=== PATIENT | female | born 1955 | race African-American/Black ===

== ENCOUNTER 2020-03-04 05:06 | Inpatient (IN) | payer OTHER ==
[~2020-03-04] VITALS: Ht 154.9 cm; Wt 90.7 kg
[2020-03-04 06:48] VITALS: BP 150/100
[2020-03-04] MEDS ORDERED: OXYBUTYNIN CHLOR5 MG PO (07:35)
[2020-03-04] MEDS ORDERED: VITAMIN C100 M2 PO (07:35)
[2020-03-04] MEDS ORDERED: LOSARTAN POTASS50 M1 PO (07:35)
[2020-03-04] MEDS ORDERED: THE MEDICINE S400 I1 PO (07:36)
[2020-03-04] MEDS ORDERED: ASPIRIN CHILDRE81 MG PO (07:36)
[2020-03-04 18:00] VITALS: BP 113/63
[2020-03-04 18:17] VITALS: BP 116/57
[2020-03-04 21:17] VITALS: BP 125/70
[2020-03-04 21:18] VITALS: BP 157/78
[2020-03-05 06:05] VITALS: BP 122/64
[2020-03-05 07:04] LABS: CALCIUM 8.2 mg/dL (8.5-10.1); CARBON DIOXIDE 25.9 mmol/L (21-32); CHLORIDE SERUM 106 mmol/L (98-107); CREATININE SERUM 0.8 mg/dL (0.6-1.0); GFR1 > 60 mL/min; GLUCOSE SERUM 100 mg/dL (74-106); POTASSIUM SERUM 4.3 mmol/L (3.5-5.1); SODIUM SERUM 139 mmol/L (136-145)
[2020-03-05 07:09] LABS: BASOPHIL % 0.3 % (0-2); PLATELET COUNT 181 x10^3mcL (130-400)
[2020-03-05 07:11] LABS: RED CELL DISTRIBUTION WIDTH 14.9 % (11.5-14.5)
[2020-03-05 09:20] VITALS: BP 126/70
[2020-03-05 13:13] VITALS: BP 126/70
[2020-03-05 17:07] VITALS: BP 112/155
== END 2020-03-05 18:08 | disposition home or self-care (01) | DRG 302 ==
LOC: MU 05:06 → DU 10:30 → MU 16:41
PROVIDERS: ADMIT Orthopaedic Surgery; ATTEND Orthopaedic Surgery
PROC: 0SRD0J9 Replacement of Left Knee Joint with Synthetic Substitute, Cemented, Open Approach (ICD-10-PCS; principal; 2020-03-04 11:30)
DX: M17.12 Unilateral primary osteoarthritis, left knee (principal); Z88.5 Allergy status to narcotic agent
CPT/HCPCS: 97116-GP; G0378; J0690; J1170; J1885; J2270; J2274; J2704; J3010; J3490; J7120; Q0092